=== PATIENT | male | born 1985 | race Caucasian/White ===

== ENCOUNTER 2023-02-15 14:45 | Inpatient (IN) | payer BC ==
--- OUTSIDE RECORDS SUMMARY | 2023-02-15 14:48 | XMS REPORT | Continuity of Care Document ---
:1985 Author Organization [facility] t Address [address] [place] [address] [place] [id number] Care Team Providers Name Role Phone Ashli Evans MD Primary Care Physician LOVE CAZARES Attending Clinician Unavailable KAMARI HOU Attending Clinician Unavailable ASHLI EVANS Attending Clinician Unavailable FIORELLA FERNÁNDEZ Attending Clinician Unavailable Reynaldo Attending Clinician Unavailable SOUMYA SPARKS Attending Clinician Unavailable Reynaldo Admitting Clinician Unavailable SOUMYA SPARKS Admitting Clinician Unavailable Payers Payer Name Policy Type Policy Number Effective Date Expiration Date S sheyla BCBS 2 [id number] 2022 00:00:00 [place] [id number] 2016 00:00:00 Problems Condition Condition Condition Status Onset Resolution Last Treating Co mments Source Name Details Category Date Date Treatment Clinician Date KING KING Disease Active Methodi (generaliz (generaliz 3-23 st ed anxiety ed anxiety 00:00: Ho spita disorder) disorder) 00 l Intermitte Intermitt Diagnosis Active 2019-06-29 Memoria nt chest ent chest 04:16:48 l pain pain Dontrell Active Diagnosis 06/29/2019 eCW: [facility] Nausea and Nausea Diagnosis Active 2019-08-15 Memoria vomiting and 04:14:14 l vomiting Kismet Active Diagnosis 08/15/2019 eCW: [facility] Labile Labile Diagnosis Active 2019-08-15 Me moria blood blood 04:14:14 l pressure pressure Shaq n Active Diagnosis 08/15/2019 eCW: [facility] Epididymit Epididymi Diagnosis Active 2019-10-21 Memoria is tis Active 04:14:23 l Diagnosis Shaq n 10/21/2019 eCW: [facility] Pelvic Pelvic Diagnosis Active 2019-10-21 Ga morisawyer pain in pain in 04:14:23 l male male Kismet Active Diagnosis 10/21/2019 eCW: [facility] Gastritis Problem Active 2019-10-24 [facility] Gastritis 04:19:29 l Active Kismet Problem 10/24/2019 eCW: [facility] Stress Stress Problem Active 2019-10-24 Antwon little Active 04:19:29 l Problem Kismet 10/24/2019 eCW: [facility] Anxiety Anxiety Problem Active 2019-10-24 Me moria Active 04:19:29 l Problem Dontrell 10/24/2019 eCW: [facility] BMI BMI Problem Active 2019-10-24 Memor ia 33.0-33.9, 33.0-33.9, 04:19:29 l adult adult Kismet Active Problem 10/24/2019 eCW: [facility] Family Family Diagnosis Active 2019-06-29 Me tien history of history of 04:16:48 l diabetes diabetes Shaq n mellitus mellitus Active Diagnosis 06/29/2019 eCW: [facility] Family Family Diagnosis Active 2019-06-29 Ga tien history of history of 04:16:48 l hyperlipid hyperlipid He rmann emia emia Active Diagnosis 06/29/2019 eCW: [facility] Encounter Encounter Diagnosis Active 2019-06-29 Memoria for for 04:16:48 l screening screening Herm yo Active Diagnosis 06/29/2019 eCW: [facility] Irritabili Diagnosis Active 2019-06-29 Memoria ty Irritabili 04:16:48 l ty Active Dontrell Diagnosis 06/29/2019 eCW: [facility] Fatigue, Fatigue, Diagnosis Active 2019-06-29 Memoria unspecifie unspecifie 04:16:48 l d type d type Kismet Active Diagnosis 06/29/2019 eCW: [facility] Allergies, Adverse Reactions, Alerts Allergy Allergy Status Severity Reaction(s) Onset Inactive Treating Comm ents Source Name Type Date Date Clinician N.K.D.A. N.K.D.A. Active Info Not Antwon little Available 707 l 00:00: Family History Family Member Diagnosis Comments Start Date Stop Date Source Natural father [facility] Natural mother Diabetes [facility] Natural mother Hypertension [facility] Natural mother Osteoporosis [facility] Social History Social Habit Start Date Stop Date Quantity Comments Source [facility] History of tobacco Current smoker [facility] Alcohol intake 2021-06-25 2021-06-25 Current drinker of [facility] 00:00:00 00:00:00 alcohol (finding) Hospita l History of Social 2021-06-25 2021-06-[address] function 00:00:00 00:00:00 Hospital Alcohol Comment 2021-06-25 2021-06-25 Occasionaly Method t 00:00:00 00:00:00 Hospital Tobacco use and 2021-06-25 2021-06-25 Smokeless tobacco [facility] exposure 00:00:00 00:00:00 non-user Hospital Sex Assigned At [birth year] [facility] 00:00:[facility]:00 Hospital Smoking Status Start Date Stop Date Source Ex-smoker 2021-06-25 00:00:00 2021-06-25 00:00:00 [facility] Medications Ordered Filled Start Stop Current Ordering Indication Dosage Frequency Signature Comments Components Source Medication Medication Date Date Medication? Clinician (SIG) Name Name escitalopra Yes [id number] 20mg QD Take 1 [facility] (Lexapro) 3-23 tablet (20 st 20 MG 00:00: mg total) Hospita tablet 00 by mouth l daily. Take 1/2 tablet (10 mg) for the first week, if tolerated then increase to 1 tablet (20 mg) daily HYDROcodone Yes TAKE ONE [facility] -acetaminop - (1) st hen (NORCO) 00:00: TABLET(S) H ospita 10-325 mg 00 BY MOUTH 5 l per tablet TIMES A DAY NEEDED FOR PAIN. Hydrocodone Yes Garrett 1 tablet M emoria /APAP 10-20 Trippett l 04:14: tizanidine 2020-0 Yes Garrett 2 tab(s) Me moria 7-18 Trippett l 04:14: K[place]et 23 azelastine 2020-0 Yes Garrett 2 spray(s) Memoria nasal 7-18 Trippett l 04:14: [place]et 23 Cipro 2020-0 Yes Garrett 1 tab(s) Memoria 7-07 Trippett l 00:00: D[place]rell ondansetron 2020-0 Yes Garrett 1 tab(s) M emoria 5-05 Trippett l 00:00: Dontrell 00 pantoprazol 2020-0 Yes Garrett 1 tab(s) M emoria e 4-03 Trippett l 00:00: Dontrell 00 Carafate 2020-0 Yes Garrett 1 tab(s) Antwon little 4-03 Trippett l 00:00: clonazepam 2020-0 Yes Garrett 1 tab(s) Me moria 3-12 Trippett l 00:00: Dontrell 00 Immunizations Ordered Immunization Filled Immunization Date Status Commen ts Source Name Name PFIZER COVID-19 MRNA Unknown Completed [facility] PFIZER COVID-19 MRNA Unknown Completed [facility] PFIZER COVID-19 MRNA Unknown Completed [facility] Vital Signs Vital Name Observation Time Observation Value Comments Source Height 2019-10-10 16:20:00 [facility] Weight 2019-10-10 16:20:00 [facility] [place] Temperature Oral (F) 2019-10-10 16:20:00 97.1 F [facility] Diastolic (mm Hg) 2019-10-10 16:20:00 Mem orial [place] Systolic (mm Hg) 2019-10-10 16:20:00 Antwon ria [facility] Height 2019-08-08 19:20:00 [facility] Weight 2019-08-08 19:20:00 [facility] Temperature Oral (F) 2019-08-08 19:20:00 98.2 F [facility] [place] Diastolic (mm Hg) 2019-08-08 19:20:00 Mem orial [place] Systolic (mm Hg) 2019-08-08 19:20:00 Antwon rial [place] Height 2019-07-07 18:50:00 [facility] [place] Weight 2019-07-07 18:50:00 [facility] [place] Temperature Oral (F) 2019-07-07 18:50:00 98 F [facility] [place] Height 2019-06-13 20:00:00 [facility] [place] Weight 2019-06-13 20:00:00 [facility] [place] Temperature Oral (F) 2019-06-13 20:00:00 96.5 F [facility] Diastolic (mm Hg) 2019-06-13 20:00:00 Mem orial [place] Systolic (mm Hg) 2019-06-13 20:00:00 Antwon rial [place] Procedures This patient has no known procedures. Plan of Care Planned Activity Planned Date Details Comments Source Future Scheduled 2023-01-28 Hepatitis C [facility] Test 23:22:52 screening (procedure) [code = 410119212] Future Scheduled 2023-01-28 COVID-19 VACCINE (4 [facility] Test 23:22:52 - season) [code = COVID-19 VACCINE (4 - season)] Future Scheduled 2023-01-28 INFLUENZA VACCINE [facility] Test 23:22:52 (#1) [code = INFLUENZA VACCINE (#1)] Encounters Start End Encounter Admission Attending Care Care Encounter Source Date/Time Date/Time Type Type Clinicians Facility Department ID 2023-02-15 Outpatient [id number] Memoria 14:48:18 [id number] Dontrell [id number] 2022-05-12 2022-05-12 Outpatient WENDY CAZARES [id number] Wendy 00:00:00 00:00:00 LOVE Sekristelol d 2022-05-10 2022-05-10 Emergency E KAMARI HOU FB FB [id number] [facility] 18:15:00 21:26:00 2021-06-25 2021-06-25 Outpatient CRISTINA [facility] [id number] [place] 00:00:00 00:00:00 ASHLI [address] 2020-02-22 2020-02-22 Outpatient FIORELLA FERNÁNDEZ [facility] [id number] [place] 00:00:00 00:00:[address] 2020-02-22 2020-02-22 Outpatient FIORELLA FERNÁNDEZ [facility] [id number] [place] 00:00:00 00:00:[address] 2020-02-22 2020-02-22 Outpatient FIORELLA FERNÁNDEZ [facility] [id number] Mor[place] 00:00:00 00:00:[address] 2020-02-21 2020-02-21 Outpatient Reynaldo MMG MMG [id number] [place] 02:21:00 02:21:00 [id number] 2019-10-23 2019-10-23 [facility] [id number] [facility] 15:37:00 15:37:00 [facility] 2019-10-10 2019-10-10 [facility] [id number] [facility] 15:52:00 15:52:00 [facility] 2019-10-10 2019-10-10 [facility] [id number] [facility] 11:20:00 11:20:00 [facility] 2019-10-10 2019-10-10 [facility] [id number] [facility] 08:31:00 08:31:00 [facility] 2019-08-08 2019-08-08 Emergency E KAMARI HOU FB [facility] [id number] [facility] 20:42:00 23:59:00 2019-08-08 2019-08-08 [facility] [place] [id number] Memoria 14:20:00 14:20:00 [facility] TV [facility] TV 2019-08-07 2019-08-07 [facility]patient [facility] [place] [id number] Mem[facility] 11:43:00 11:43:00 [facility] 2019-08-07 2019-08-07 [facility] [id number] [facility] 10:47:00 10:47:00 [facility] 2019-07-07 2019-07-07 [facility] [id number] Mem[facility] 13:50:00 13:50:00 [facility] TV Herm [facility] Practice TV 2019-07-07 2019-07-07 Out[facility] [place] [id number] [facility] 12:35:00 12:35:00 [facility] 2019-06-22 2019-06-22 Out[facility] [place] [id number] Memoria 10:09:00 10:09:00 [facility] 2019-06-15 2019-06-15 Outpatient [place] [id number] [facility] 13:17:00 13:17:00 [facility] 2019-06-14 2019-06-14 Outpatient [place] [id number] [facility] 16:59:00 16:59:00 [facility] 2019-06-13 2019-06-13 Outpatient [place] [id number] [facility] 15:00:00 15:00:00 [facility] 2019-06-13 2019-06-13 Outpatient [place] [id number] [facility] 15:00:00 15:00:00 [facility] 2015-07-02 2015-07-02 Outpatient [facility] [id number] [place] 00:00:00 00:00:00 SOUMYA [address] Results This patient has no known results.
[2023-02-15] MEDS ORDERED: MORPHINE 4 MG/ML SYR ONE ×3 (15:12→19:32)
[2023-02-15] MEDS ORDERED: NA CHLORIDE 0.9% 1,000 ML ONE (15:12)
[2023-02-15 15:40] LABS: Albumin 3.8 g/dL (3.4-5.0); Bilirubin Total 0.8 mg/dL (0.2-1.0); Potassium 4.1 mEq/L (3.5-5.1); Protein, Total 7.7 g/dL (6.4-8.2)
[2023-02-15 15:48] LABS: Absolute Lymphocytes (CBC) 0.9 K/uL (0.7-4.9); Hematocrit 47.7 % (39.6-49.0); MCV 90.1 fL (80-100); MPV 7.1 fL (7.6-11.3); Platelets 285 thou/uL (152-406); RBC Red Blood Cell Count 5.29 M/uL (4.33-5.43)
--- NOTE | 2023-02-15 16:21 | RAD REPORT ---
EXAM DESCRIPTION: CT - Abdomen Pelvis W Contrast - 02/15/2023 4:10 pm CLINICAL HISTORY: Abdominal pain COMPARISON: none. TECHNIQUE: Computed axial tomography of the abdomen pelvis was obtained. 100 cc Isovue-300 was admin istered intravenously. Oral contrast was not requested which limits evaluation of bowel and appendix All CT scans are performed using dose optimization technique as appropriate and may include automated exposure control or mA/KV adjustment according to patient size. FINDINGS: Fatty liver Mild enlargement of pancreatic tail. Mild to moderate stranding within the adjacent fat. No pseudocys t. Spleen, adrenals and kidneys unremarkable Normal appendix. No evidence diverticulitis. Small to moderate umbilical hernia Small left inguinal hernia IMPRESSION: Mild to moderate pancreatitis
--- NOTE | 2023-02-15 17:39 | RAD REPORT ---
EXAM DESCRIPTION: US - Abdomen Exam Limited - 02/15/2023 5:04 pm CLINICAL HISTORY: Abdominal pain. FINDINGS: The gallbladder wall is not thickened. A gallstone is not seen. Small amount of gallbladder sludge The biliary tree is normal caliber. IMPRESSION: Small amount of gallbladder sludge
--- NOTE | 2023-02-15 17:59 | ER ---
Nurse's Notes [facility] Name: Juanjo Castro Age: 37 yrs Sex: Male : 1985 Arrival Date: 02/15/2023 Time: 14:45 Bed 13 Private MD: Diagnosis: Acute pancreatitis without necrosis or infection, unspecified;Transaminitis;Elevated blood-pressure reading, without diagnosis of hypertension Presentation: 02/15 14:56 Chief complaint: Left sided abdominal pain, N/V, and chills since this morning. Denies hb diarrhea/fever. Coronavirus screen: Client presents with at least one sign or symptom that may indicate coronavirus-19. Provider contacted for isolation considerations. Ebola Screen: No symptoms or risks identified at this time. Initial Sepsis Screen: Does the patient meet any 2 criteria? No. Patient's initial sepsis screen is negative. Does the patient have a suspected source of infection? No. Patient's initial sepsis screen is negative. Risk Assessment: Do you want to hurt yourself or someone else? Patient reports no desire to harm self or others. Onset of symptoms was February 15, 2023. 14:56 Method Of Arrival: Ambulatory hb 14:56 Acuity: ANGELA 3 hb Historical: - Allergies: 14:57 No Known Allergies; hb - Home Meds: 14:57 None [Active]; hb - PMHx: 14:57 None; hb - PSHx: 14:57 Arm - Left; Jaw; hb - Immunization history:: Adult Immunizations unknown. - Social history:: Smoking status: Patient denies any tobacco usage or history of. Screenin:00 [facility] ED Fall Risk Assessment (Adult) History of falling in the last 3 months, ko1 including since admission No falls in past 3 months (0 pts) Confusion or Disorientation No (0 pts) Intoxicated or Sedated No (0 pts) Impaired Gait No (0 pts) Mobility Assist Device Used No (0 pt) Altered Elimination No (0 pt) Score/Fall Risk Level 0 - 2 = Low Risk Oriented to surroundings, Maintained a safe environment, Educated pt \T\ family on fall prevention, incl call for assistance when getting out of bed, Assessed \T\ reinforced patient's understanding of fall precautions, Provided non-skid footwear, Hourly rounding (assess needs \T\ fall precautionary measures) done, Used ambulatory aids as needed (educated on \T\ assisted with), Used gait belt as appropriate. Abuse screen: Denies threats or abuse. Denies injuries from another. Nutritional screening: No deficits noted. Tuberculosis screening: No symptoms or risk factors identified. Assessment: 15:00 General: Appears distressed, uncomfortable, Behavior is cooperative, appropriate for ko1 age. Pain: Complains of pain in left upper quadrant and left lower quadrant. Neuro: No deficits noted. Cardiovascular: No deficits noted. Respiratory: No deficits noted. GI: Bowel sounds present X 4 quads. Abd is soft X 4 quads Abdomen is tender to palpation in left upper quadrant and left lower quadrant. : No deficits noted. EENT: No deficits noted. Derm: No deficits noted. Musculoskeletal: No deficits noted. 19:00 General: Appears in no apparent distress. uncomfortable, well groomed, well developed, pf1 Behavior is cooperative, appropriate for age. 19:00 Pain: Complains of pain in left upper quadrant Pain currently is 10 out of 10 on a pain pf1 scale. Neuro: No deficits noted. Level of Consciousness is awake, alert, obeys commands, Oriented to person, place, time, situation. Cardiovascular: No deficits noted. Capillary refill < 3 seconds Patient's skin is warm and dry. Respiratory: No deficits noted. Airway is patent Respiratory effort is even, unlabored, Respiratory pattern is regular, symmetrical. GI: Abdomen is round non-distended, Bowel sounds present X 4 quads. Abd is soft Abdomen is tender to palpation in left upper quadrant Reports upper abdominal pain. EENT: No deficits noted. No signs and/or symptoms were reported regarding the EENT system. Derm: No deficits noted. No signs and/or symptoms reported regarding the dermatologic system. 20:00 Reassessment: Patient appears in no apparent distress at this time. Patient and/or pf1 family updated on plan of care and expected duration. Pain level reassessed. Patient is alert, oriented x 3, equal unlabored respirations, skin warm/dry/pink. Patient states symptoms have improved. Vital Signs: 14:56 BP 144 / 94; Pulse 99; Resp 18; Temp 98.3(O); Pulse Ox 100% on R/A; Weight 108.86 kg; hb Height 5 ft. 11 in. ; Pain 10/10; 15:21 BP 136 / 98; Pulse 92; Resp 16; Pulse Ox 99% ; ko1 16:33 BP 134 / 82; Pulse 95; Resp 20; Pulse Ox 99% ; ko1 17:37 BP 137 / 86; Pulse 92; Resp 16; Pulse Ox 98% ; ko1 18:40 BP 102 / 67; Pulse 98; Resp 18; Pulse Ox 98% ; ko1 19:20 BP 142 / 78; Pulse 89; Resp 16; Pulse Ox 97% on R/A; Pain 10/10; pf1 20:30 BP 132 / 78; Pulse 78; Resp 16; Temp 99.4; Pulse Ox 97% on R/A; Pain 8/10; pf1 14:56 Body Mass Index 33.47 (108.86 kg, 180.34 cm) hb 14:56 Pain Scale: Adult hb 19:20 Pain Scale: Adult pf1 20:30 Pain Scale: Adult pf1 ED Course: 14:46 Patient arrived in ED. rg4 14:47 Sal Stevens DO is Attending Physician. ms3 14:53 Malena Wilkins, RN is Primary Nurse. ko1 14:57 Triage completed. hb 14:57 Arm band placed on. hb 15:00 Patient has correct armband on for positive identification. Placed in gown. Bed in low ko1 position. Call light in reach. Side rails up X 1. Provided Education on: ,. Pulse ox on. NIBP on. Door closed. Noise minimized. Warm blanket given. 15:00 Inserted saline lock: 20 gauge in right antecubital area, using aseptic technique. ko1 Blood collected. 15:18 CBC with Diff Sent. ko1 15:18 CMP Sent. ko1 15:18 Lipase Sent. ko1 16:12 CT Abd/Pelvis - IV Contrast Only In Process Unspecified. EDMS 16:33 No provider procedures requiring assistance completed. ko1 17:05 US Abdomen Limited In Process Unspecified. EDMS 17:59 Med Resendiz MD is Hospitalizing Provider. ms3 20:30 Patient admitted, IV remains in place. pf1 02/16 04:04 Attending Physician role handed off by Sal Stevens DO pf1 04:04 Primary Nurse role handed off by Malena Wilkins, RN pf1 Administered Medications: 02/15 15:00 Drug: NS 0.9% IV 1000 ml IV at 1 bolus Per protocol; 1000 mL bolus Route: IV; Rate: 1 ko1 bolus; Site: right antecubital; 19:00 Follow up: Response: No adverse reaction; Marked relief of symptoms; IV Status: pf1 Completed infusion; IV Intake: 1000ml 15:05 Drug: Famotidine IVP 20 mg IVP once; dilute with 10 mL 0.9% NaCl; give over 2 minutes ko1 Route: IVP; Site: right antecubital; 15:10 Drug: Ondansetron IVP 4 mg IVP once; over 2 minutes Route: IVP; Site: right antecubital;ko1 15:15 Drug: morphine IVP or IV 4 mg IVP once over 4 mins Route: IVP; Infused Over: 4 mins; ko1 Site: right antecubital; 16:26 Follow up: Response: No change in condition; Pain is unchanged, physician notified ko1 17:30 Drug: morphine IVP or IV 4 mg IVP once over 4 mins Route: IVP; Infused Over: 4 mins; ko1 Site: right antecubital; 19:00 Follow up: Response: No adverse reaction; Marked relief of symptoms; Pain is decreased; pf1 RASS: Alert and Calm (0) 19:30 Drug: HYDROmorphone IVP 1 mg IVP once Route: IVP; Site: right antecubital; pf1 20:30 Follow up: Response: No adverse reaction; Marked relief of symptoms; Pain is decreased; pf1 RASS: Alert and Calm (0) Medication: 16:33 VIS not applicable for this client. ko1 Intake: 19:00 IV: 1000ml; Total: 1000ml. pf1 Outcome: 17:59 Decision to Hospitalize by Provider. ms3 20:32 Admitted to Med/surg accompanied by tech, via wheelchair, with chart, Report called to pf1 ADELINE Haro 20:32 Condition: stable 20:32 Instructed on the need for admit, Demonstrated understanding of instructions, 21:13 Patient left the ED. pf1 02/16 04:15 Patient left the ED. pf1 Signatures: Dispatcher [employer] EDMS Laila Sanders RN RN hb Garcia, Rubi rg4 Sal Stevens DO DO ms3 Malena Wilkins RN RN ko1 Saravia, Clementine, RN RN pf1
--- NOTE | 2023-02-15 17:59 | EDPHYS ---
Physician Documentation [facility] Name: Juanjo Castro Age: 37 yrs Sex: Male : 1985 Arrival Date: 02/15/2023 Time: 14:45 Bed 13 Private MD: ED Physician HPI: 02/15 15:05 This 37 yrs old Male presents to ER via Ambulatory with complaints of Abdominal Pain. ms3 15:05 37-year-old male with no past medical history presents to the emergency department for ms3 generalized abdominal pain. Patient states the pain is rated 10/10. Patient states the pain is throbbing, dull, and comes in waves. Patient endorses nausea, vomiting, chills. Patient denies diarrhea.. Historical: - Allergies: 14:57 No Known Allergies; hb - Home Meds: 14:57 None [Active]; hb - PMHx: 14:57 None; hb - PSHx: 14:57 Arm - Left; Jaw; hb - Immunization history:: Adult Immunizations unknown. - Social history:: Smoking status: Patient denies any tobacco usage or history of. ROS: 15:05 Constitutional: Negative for fever, and chills. Neck: Negative for injury, pain, and ms3 swelling, Cardiovascular: Negative for chest pain, and palpitations. Respiratory: Negative for shortness of breath, cough, wheezing, and pleuritic chest pain, 15:05 MS/Extremity: Negative for injury and deformity, Skin: Negative for injury, rash, and discoloration, 15:05 Abdomen/GI: Positive for abdominal pain, nausea and vomiting, Negative for diarrhea, 15:05 All other systems are negative, Exam: 15:05 Constitutional: This is a well developed, well nourished patient who is awake, alert, ms3 and in no acute distress. Head/Face: Normocephalic, atraumatic. Neck: Trachea midline, no cervical lymphadenopathy. Supple, full range of motion without nuchal rigidity, or vertebral point tenderness. No Meningismus. Chest/axilla: Normal chest wall appearance and motion. Nontender with no deformity. Cardiovascular: Regular rate and rhythm with a normal S1 and S2. No gallops, murmurs, or rubs. Normal PMI, no JVD. No pulse deficits. Respiratory: Lungs have equal breath sounds bilaterally, clear to auscultation and percussion. No rales, rhonchi or wheezes noted. No increased work of breathing, no retractions or nasal flaring. Abdomen/GI: Soft, non-tender, with normal bowel sounds. No distension or tympany. No guarding or rebound. No evidence of tenderness throughout. Skin: Warm, dry with normal turgor. Normal color with no rashes, no lesions, and no evidence of cellulitis. Vital Signs: 14:56 BP 144 / 94; Pulse 99; Resp 18; Temp 98.3(O); Pulse Ox 100% on R/A; Weight 108.86 kg; hb Height 5 ft. 11 in. ; Pain 10/10; 15:21 BP 136 / 98; Pulse 92; Resp 16; Pulse Ox 99% ; ko1 16:33 BP 134 / 82; Pulse 95; Resp 20; Pulse Ox 99% ; ko1 17:37 BP 137 / 86; Pulse 92; Resp 16; Pulse Ox 98% ; ko1 18:40 BP 102 / 67; Pulse 98; Resp 18; Pulse Ox 98% ; ko1 19:20 BP 142 / 78; Pulse 89; Resp 16; Pulse Ox 97% on R/A; Pain 10/10; pf1 20:30 BP 132 / 78; Pulse 78; Resp 16; Temp 99.4; Pulse Ox 97% on R/A; Pain 8/10; pf1 14:56 Body Mass Index 33.47 (108.86 kg, 180.34 cm) hb 14:56 Pain Scale: Adult hb 19:20 Pain Scale: Adult pf1 20:30 Pain Scale: Adult pf1 MDM: 14:55 Patient medically screened. ms3 16:36 Differential diagnosis: appendicitis, bowel obstruction, non-specific abd pain. ms3 18:05 Data reviewed: vital signs, nurses notes, and as a result, I will admit patient. ms3 Consideration of Admission/Observation Patient was admitted/placed on observation. Management of patient was discussed with the following: Hospitalist: Discussed case with Daisha Donis, nurse practitioner, on behalf of hospitalist. I considered the following discharge prescriptions or medication management in the emergency department Medications were administered in the Emergency Department. See MAR. Counseling: I had a detailed discussion with the patient and/or guardian regarding the historical points, exam findings, and any diagnostic results supporting the discharge/admit diagnosis, lab results, radiology results, the need for further work-up and treatment in the hospital. 02/15 14:55 Order name: CBC with Diff; Complete Time: 16:10 ms3 02/15 14:55 Order name: CMP; Complete Time: 16:10 ms3 02/15 14:55 Order name: Lipase; Complete Time: 16:10 ms3 02/15 19:15 Order name: Lipid Profile EDMS 02/15 19:15 Order name: Basic Metabolic Panel EDMS 02/15 19:15 Order name: Basic Metabolic Panel EDMS 02/15 19:15 Order name: CBC with Automated Diff EDMS 02/15 19:15 Order name: CBC with Automated Diff EDMS 02/15 19:15 Order name: Lipase EDMS 02/15 19:15 Order name: Lipase EDMS 02/15 19:15 Order name: Liver (Hepatic) Function EDMS 02/15 19:15 Order name: Liver (Hepatic) Function EDMS 02/15 14:55 Order name: CT Abd/Pelvis - IV Contrast Only; Complete Time: 16:32 ms3 02/15 16:39 Order name: US Abdomen Limited; Complete Time: 17:44 ms3 02/15 19:15 Order name: Cholangiogram EDMS 02/15 14:55 Order name: IV Saline Lock; Complete Time: 15:17 ms3 02/15 14:55 Order name: Labs collected and sent; Complete Time: 15:17 ms3 Administered Medications: 15:00 Drug: NS 0.9% IV 1000 ml IV at 1 bolus Per protocol; 1000 mL bolus Route: IV; Rate: 1 ko1 bolus; Site: right antecubital; 19:00 Follow up: Response: No adverse reaction; Marked relief of symptoms; IV Status: pf1 Completed infusion; IV Intake: 1000ml 15:05 Drug: Famotidine IVP 20 mg IVP once; dilute with 10 mL 0.9% NaCl; give over 2 minutes ko1 Route: IVP; Site: right antecubital; 15:10 Drug: Ondansetron IVP 4 mg IVP once; over 2 minutes Route: IVP; Site: right antecubital;ko1 15:15 Drug: morphine IVP or IV 4 mg IVP once over 4 mins Route: IVP; Infused Over: 4 mins; ko1 Site: right antecubital; 16:26 Follow up: Response: No change in condition; Pain is unchanged, physician notified ko1 17:30 Drug: morphine IVP or IV 4 mg IVP once over 4 mins Route: IVP; Infused Over: 4 mins; ko1 Site: right antecubital; 19:00 Follow up: Response: No adverse reaction; Marked relief of symptoms; Pain is decreased; pf1 RASS: Alert and Calm (0) 19:30 Drug: HYDROmorphone IVP 1 mg IVP once Route: IVP; Site: right antecubital; pf1 20:30 Follow up: Response: No adverse reaction; Marked relief of symptoms; Pain is decreased; pf1 RASS: Alert and Calm (0) Disposition Summary: 02/15/23 17:59 Hospitalization Ordered Notes: Hospitalization Status: Inpatient Admission ms3 Provider: Med Resendiz ms3 Location: Telemetry/MedSurg (Inpatient) ms3 Condition: Stable ms3 Problem: new ms3 Symptoms: are unchanged ms3 Bed/Room Type: Standard ms3 Room Assignment: 220(02/15/23 19:54) cg Diagnosis - Acute pancreatitis without necrosis or infection, unspecified ms3 - Transaminitis ms3 - Elevated blood-pressure reading, without diagnosis of hypertension ms3 Discharge Instructions: - Discharge Summary Sheet ko1 Forms: - Medication Reconciliation Form ms3 - SBAR form ms3 - Leadership Thank You Letter ms3 - Work release form ko1 Signatures: Dispatcher [employer] EDDaisha Cunah FNP-C DIGITAL MEDIA SPECIALIST-Csnw Bertha Leon RN RN Laila Sanders RN Sal Mac DO DO ms3 Malena Wilkins RN RN ko1 Clementine Saravia, ADELINE RN pf1 Corrections: (The following items were deleted from the chart) 19:54 17:59 ms3 cg
[2023-02-15] MEDS ORDERED: HYDROMORPHONE HCL 1 MG/ML INJ IV ONE (19:28)
[2023-02-15] MEDS: ONDANSETRON 4 MG (ODT) TAB PO PRN (19:30)
[2023-02-15] MEDS ORDERED: ONDANSETRON 4 MG/2 ML VIAL ONE (19:33)
[2023-02-15] MEDS ORDERED: HYDROMORPHONE HCL 1 MG/ML INJ ONE (19:37)
[2023-02-15] MEDS: D5 0.45 NS 1,000 ML IV SCH (20:00)
[2023-02-15] MEDS: MORPHINE 4 MG/ML SYR IV PRN (21:26)
[2023-02-15 22:10] VITALS: O2SAT 98
[2023-02-15 22:17] VITALS: BMI 30.6
[2023-02-15] MEDS ORDERED: LORAZEPAM 1 MG TABLET PO ONE (23:32)
[2023-02-15] MEDS ORDERED: cloNIDine HCL 0.1 MG TAB PO ONE (23:33)
--- NOTE | 2023-02-16 00:18 | P.HP ---
Certification for Inpatient Patient admitted to: Inpatient With expected LOS: >2 Midnights Patient will require the following post-hospital care: None Practitioner: I am a practitioner with admitting privileges, knowledge of patient current condition, hospital course, and medical plan of care. Services: Services provided to patient in accordance with Admission requirements found in Title 42 Section 412.3 of the Code of Federal Regulations Patient History Date of Service: 02/16/23 Primary Care Provider: Dr. Garrett Ferrer Reason for admission: acute pancreatitis History of Present Illness: Pt is a 37 yo male with a history of multiple orthopedic injuries/surgeries. He is on [place] 10/325 TID. Mr. Castro is taking testosterone replacement therapy, does not smoke and drinks ETOH socially. He arrives to the ED today with c/o upper left abdominal pain. He states he has never experienced this before today. He is noted in the ED to have GB sludge but normal CBD. His LFT are elevated but he has a normal bilirubin. He will be admitted for serial labs and a MRCP in the morning Allergies No Known Allergies Allergy (Unverified 02/15/23 20:06) Home medications list reviewed: Yes - Past Medical/Surgical History Has patient received pneumonia vaccine in the past: No Diabetic: No -: back and shoulder pain -: harleen in humerus, plate in jaw, ligament/tendon repair of left ring finger -: knee sx, left arm sx, jaw sx -: ACL repair Psychosocial/ Personal History: Lives at home with his , Vanessa. [phone] - Family History Family History: Reviewed- Non-Contributory - Social History Smoking Status: Never smoker Alcohol use: Yes CD- Drugs: Yes Caffeine use: Yes Place of Residence: Home Review of Systems 10-point ROS is otherwise unremarkable Gastrointestinal: Nausea, Vomiting, Abdominal Pain, As per HPI Physical Examination - Vital Signs Temperature: 98.5 F Blood Pressure: 135/85 Pulse: 91 Respirations: 18 Pulse Ox (%): 98 - Physical Exam General: Alert, In no apparent distress, Oriented x3 HEENT: Atraumatic, Normocephalic, PERRLA Neck: Supple, 2+ carotid pulse no bruit, JVD not distended Respiratory: Clear to auscultation bilaterally, Normal air movement Cardiovascular: No edema, Normal pulses Capillary refill: <2 Seconds Gastrointestinal: Hypoactive, Tenderness (LUQ, epigastric) Musculoskeletal: No clubbing, No swelling, No contractures Integumentary: No rashes, No breakdown Neurological: Normal speech, Normal strength at 5/5 x4 extr, Normal tone Lymphatics: No axilla or inguinal lymphadenopathy External genitalia: Deferred Rectal: Deferred - Studies Laboratory Data (last 24 hrs) 02/15/23 02/15/23 15:10 15:10 WBC 10.30 Hgb 17.1 Hct 47.7 Plt Count 285 Sodium 134 L Potassium 4.1 BUN 9 Creatinine 0.84 Glucose 151 H Total Bilirubin 0.8 AST 386 H ALT 287 H Alkaline Phosphatase 86 Lipase 227 H Assessment and Plan - Problems (Diagnosis) (1) Acute pancreatitis Onset Date: ~02/15/23 Current Visit: Yes Status: Acute Plan: NPO x ice chips sparingly, IVF, pain medications, Serial LFTs, Lipid evaluation in am. MRCP in am. Qualifiers: Pancreatitis type: unspecified pancreatitis type Acute pancreatitis complication: no infection or necrosis Qualified Code(s): K85.90 - Acute pancr eatitis without necrosis or infection, unspecified Discharge Plan: Home Plan to discharge in: 72 Hours - Advance Directives Does patient have a Living Will: No Does patient have a Durable POA for Healthcare: No - Code Status/Comfort Care Code Status Assessed: Yes Code Status: Full Code Critical Care: No Time Spent Managing Pts Care (In Minutes): 50
[2023-02-16] MEDS: MORPHINE 4 MG/ML SYR IV PRN ×2 (01:30→06:36)
[2023-02-16] MEDS ORDERED: HYDROMORPHONE HCL 0.5 MG/0.5 ML INJ IV ONE (03:42)
[2023-02-16 04:02] LABS: Absolute Lymphocytes (CBC) 1.3 K/uL (0.7-4.9); Hematocrit 44.1 % (39.6-49.0); Lymphocytes % 8.9 % (15.3-44.8); MCV 90.8 fL (80-100); MPV 7.5 fL (7.6-11.3); Platelets 264 thou/uL (152-406); RBC Red Blood Cell Count 4.85 M/uL (4.33-5.43)
[2023-02-16] MEDS: D5 0.45 NS 1,000 ML IV SCH ×3 (04:16→20:02)
[2023-02-16] MEDS ORDERED: INFLUENZA VACCINE (for 6+ mo) 0.5 ML DOSE IMVAC ONE (08:00)
[2023-02-16] MEDS ORDERED: LORazepam 2 MG/ML VIAL IV ONE (10:15)
[2023-02-16 11:18] LABS: Albumin 3.2 g/dL (3.4-5.0); Bilirubin Direct 0.7 mg/dL (0-0.2); Bilirubin Indirect, Calculated 1.4 mg/dL (0.2-0.8); Bilirubin Total 2.1 mg/dL (0.2-1.0); Potassium 3.3 mEq/L (3.5-5.1); Protein, Total 7.3 g/dL (6.4-8.2)
[2023-02-16] MEDS: HYDROMORPHONE HCL 0.5 MG/0.5 ML INJ IV PRN ×4 (11:46→23:33)
--- NOTE | 2023-02-16 11:59 | RAD REPORT ---
EXAM DESCRIPTION: MRI - Cholangiogram - 02/16/2023 11:41 am CLINICAL HISTORY: pancreatitis COMPARISON: Abdomen Pelvis W Contrast dated 02/15/2023; Abdomen Exam Limited dated 02/15/2023 FINDINGS: Three-dimensional MRCP was performed using maximum intensity projection reconstruction on the same work station. No intrahepatic biliary tree dilatation is seen. The common bile duct is normal caliber without evide nce of retained stone, stricture or mass. The pancreatic duct is not pathologically dilated. The gallbladder is unremarkable. Limited T2 sequences through the abdomen demonstrates no bulky adenopathy, significant free fluid or abscess. Peripancreatic edema primarily along the distal body and tail. IMPRESSION: Re- demonstrated sequela of acute pancreatitis with peripancreatic fluid primarily along the body and tail. No intra or extrahepatic biliary duct dilatation. No pancreatic ductal dilatation . Negative for choledocholithiasis.
--- NOTE | 2023-02-16 15:44 | P.PN ---
Subjective Date of Service: 02/16/23 Primary Care Provider: Dr. Garrett Ferrer Chief Complaint: acute pancreatitis Patient states that he drank alcohol during the weekend. He reports uncontrolled abdominal pain. He describes abdominal constant pain and intermittent more severe colicky pain. No vomiting. He denies diarrhea. Physical Examination - Vital Signs Temperature: 97.6 F Blood Pressure: 131/73 Pulse: 83 Respirations: 20 Pulse Ox (%): 100 - Studies Laboratory Data (last 24 hrs) 02/15/23 02/15/23 15:10 15:10 WBC 10.30 Hgb 17.1 Hct 47.7 Plt Count 285 Sodium 134 L Potassium 4.1 BUN 9 Creatinine 0.84 Glucose 151 H Total Bilirubin 0.8 AST 386 H ALT 287 H Alkaline Phosphatase 86 Lipase 227 H Assessment And Plan - Plan Physical Exam General: Alert, In no apparent distress, Oriented x3 Neck: Supple, JVD not distended. Respiratory: Clear to auscultation bilaterally, Normal air movement Cardiovascular: No edema, Normal pulses Gastrointestinal: Normal bowel sound, diffuse tenderness, no rebound tenderness or guarding. Integumentary: No rashes, No breakdown Neurological: Normal speech, Normal strength at 5/5 x4 extr, Normal tone Diagnosis: Acute pancreatitis Alcohol use Gallbladder sludge. Hyponatremia Hypokalemia Plan: MRCP results reviewed and confirmed acute pancreatitis. No CBD stone. Continue supportive measures with IV hydration, analgesics and antiemetics as n eeded. Clear liquid diet. Monitor and optimize electrolytes Consider elective cholecystectomy as outpatient. DVT prophylaxis: Lovenox.
[2023-02-16] MEDS: ENOXAPARIN 40 MG/0.4 ML SQ SCH (16:59)
[2023-02-16] MEDS: ONDANSETRON 4 MG (ODT) TAB PO PRN (23:32)
[2023-02-17] MEDS ORDERED: LORazepam 2 MG/ML VIAL IV ONE (02:36)
[2023-02-17 02:56] LABS: Absolute Lymphocytes (CBC) 1.8 K/uL (0.7-4.9); Hematocrit 41.5 % (39.6-49.0); Lymphocytes % 16.5 % (15.3-44.8); MCV 90.6 fL (80-100); MPV 7.2 fL (7.6-11.3); Platelets 197 thou/uL (152-406); RBC Red Blood Cell Count 4.58 M/uL (4.33-5.43)
[2023-02-17 03:13] LABS: Albumin 2.9 g/dL (3.4-5.0); Bilirubin Total 2.2 mg/dL (0.2-1.0); Potassium 3.4 mEq/L (3.5-5.1); Protein, Total 6.7 g/dL (6.4-8.2)
[2023-02-17] MEDS: HYDROMORPHONE HCL 0.5 MG/0.5 ML INJ IV PRN ×2 (04:05→08:43)
[2023-02-17] MEDS: D5 0.45 NS 1,000 ML IV SCH ×2 (04:09→12:00)
[2023-02-17] MEDS: ENOXAPARIN 40 MG/0.4 ML SQ SCH (08:45)
[2023-02-17] MEDS ORDERED: HYDROCODONE/APAP 10/325 TAB PO PRN (09:32)
[2023-02-17] MEDS ORDERED: POTASSIUM CL SA 10 MEQ TAB PO ONE (12:10)
[2023-02-17] MEDS: Oxycodone HCl/Acetaminophen 5/325 MG TAB PO PRN ×2 (14:24→17:55)
[2023-02-17 17:14] VITALS: BP 137/84; TEMP 97.7
--- NOTE | 2023-02-17 17:59 | P.DS ---
Admission Date: 02/15/23 Discharge Date: 02/17/23 Primary Care Provider: Dr. Garrett Ferrer Disposition: ROUTINE DISCHARGE Discharge Condition: FAIR Reason for Admission: acute pancreatitis Brief History of Present Illness: 37 yo male with a history of multiple orthopedic injuries/surgeries. He is on [place] 10/325 TID. Mr. Castro is taking testosterone replacement therapy, does not smoke and drinks ETOH socially. He presented to the emergency department with c/o upper left abdominal pain. He is noted in the ED to have GB sludge but normal CBD on the CT abdomen. His LFT are elevated but bilirubin normal. His lipase is also elevated. Patient was diagnosed with acute pancreatitis and admitted for further management. Hospital Course: Diagnosis: Acute pancreatitis Alcohol use Gallbladder sludge. Hyponatremia Hypokalemia Patient admitted to the medical floor and treated with supportive measures including IV fluid and analgesics as needed. He was placed on clear liquid diet which he tolerated MRCP done confirmed acute pancreatitis, no CBD stone. Lipase level monitored trended down significantly. Patient's abdominal pain has improved, has good oral intake. He requested to go home. Overall patient is clinically improved with stable vitals. He is informed to stick with clear liquid diet for the next day or 2 and advance diet as tolerated. Vital Signs/Physical Exam: Temp Pulse Resp BP Pulse Ox 97.7 F 87 18 137/84 99 02/17/23 16:00 02/17/23 16:00 02/17/23 16:00 02/17/23 16:00 02/17/23 16:00 General: Alert, In no apparent distress, Oriented x3 HEENT: Mucous membr. moist/pink Neck: Supple, JVD not distended Respiratory: Clear to auscultation bilaterally, Normal air movement Cardiovascular: No edema, Regular rate/rhythm, Normal S1 S2 Gastrointestinal: Normal bowel sounds, Soft and benign, Non-distended, No tenderness Musculoskeletal: No swelling Integumentary: No rashes, No cyanosis Neurological: Normal strength at 5/5 x4 extr Laboratory Data at Discharge: WBC 10.70 thou/uL (4.3-10.9) 02/17/23 02:09 Hgb 14.7 g/dL (13.6-17.9) 02/17/23 02:09 Hct 41.5 % (39.6-49.0) 02/17/23 02:09 Plt Count 197 thou/uL (152-406) 02/17/23 02:09 Sodium 135 mEq/L (136-145) L 02/17/23 02:09 Potassium 3.4 mEq/L (3.5-5.1) L 02/17/23 02:09 BUN 3 mg/dL (7-18) L 02/17/23 02:09 Creatinine 0.72 mg/dL (0.70-1.30) 02/17/23 02:09 Glucose 119 mg/dL (74-106) H 02/17/23 02:09 Total Bilirubin 2.2 mg/dL (0.2-1.0) H 02/17/23 02:09 AST 89 U/L (15-37) H 02/17/23 02:09 ALT 138 U/L (16-61) H 02/17/23 02:09 Alkaline Phosphatase 72 U/L (45-117) 02/17/23 02:09 Triglycerides 245 mg/dL (<150) H 02/16/23 10:10 Cholesterol 115 mg/dL (<200) 02/16/23 10:10 HDL Cholesterol 25 mg/dL (40-60) L 02/16/23 10:10 Cholesterol/HDL Ratio 4.60 02/16/23 10:10 Lipase 121 U/L (13-75) H 02/17/23 02:09 Home Medications: Ondansetron [Zofran (Odt)*] 4 mg PO Q4H PRN #30 tab 02/17/23 Oxycodone HCl/Acetaminophen [Percocet 5/325 Tab*] 2 tab PO Q6H PRN #30 tab 02/17/23 New Medications: Oxycodone HCl/Acetaminophen [Percocet 5/325 Tab*] 2 tab PO Q6H PRN #30 tab PRN Reason: Pain Scale 8-10 (Severe) Ondansetron [Zofran (Odt)*] 4 mg PO Q4H PRN #30 tab PRN Reason: Nausea / Vomiting Physician Discharge Instructions: Clear liquid diet for 1 day and then advance as tolerated. Activity: Ad jarred Followup: Eduardo Shah MD [ACTIVE - CAN ADMIT] - 1-2 Weeks (folow up ) Time spent managing pt's care (in minutes): 32
== END 2023-02-17 18:11 | disposition home or self-care (01) | DRG 439 ==
LOC: ER 14:45 → ERHOLD 19:13 → 2ND 20:07
PROVIDERS: ADMIT Internal Medicine; ATTEND Internal Medicine
DX: K85.90 Acute pancreatitis without necrosis or infection, unspecified (principal); E87.1 Hypo-osmolality and hyponatremia; E87.6 Hypokalemia; R74.01 Elevation of levels of liver transaminase levels; Z79.899 Other long term (current) drug therapy
CPT/HCPCS: 36415; 74177; 74181; 76705; 80048; 80053; 80061; 80076; 83690; 85025; 96361; 96374; 96375; 99285; J1170; J1650; J2405; J7030; J7799; Q0162; Q9967